=== PATIENT | female | born 2000 | race Caucasian/White ===

== ENCOUNTER 2020-12-01 08:56 | Emergency (ER) | payer MEDICAID, SELFPAY ==
[2020-12-01 09:31] LABS: Bilirubin Small (Negative); Blood, Urine Large (Negative); Glucose, Urine (Dipstick) Negative (Negative); Ketone, Urine Negative (Negative); Leukocyte Small (Negative); Nitrite Negative (Negative); Protein, Urine (Dipstick) Trace mg/dL (Neg-Trace); Specific Gravity, Urine 1.025 (1.005-1.030)
[2020-12-01 09:38] LABS: Clarity Hazy (Clear)
[2020-12-01 09:39] LABS: Bacteria/HPF Rare-Few HPF (None Seen); Pregnancy Test - Urine (BHCG) Negative (Negative); Pregu Control Background? CLEAR/WHITE (CLR/WHITE); Pregu Control Bar Appear? YES (CONTROL BAR); RBC/HPF 0-3 HPF (0-3); Specific Gravity 1.025 (1.002-1.036); Squamous Epithelial 0-3 HPF (0-3)
== END 2020-12-01 09:58 | disposition home or self-care (01) ==
LOC: BURERS 08:56
DX: R30.0 Dysuria (principal); R10.9 Unspecified abdominal pain; Z79.899 Other long term (current) drug therapy; F17.200 Nicotine dependence, unspecified, uncomplicated
CPT/HCPCS: 81003; 81015; 81025; 87077; 87086; 87186; 99283

== ENCOUNTER 2021-08-27 11:32 | Emergency (ER) | payer SELFPAY ==
[2021-08-27 23:35] LABS: SARS-CoV-2 PCR by NAA Not Detected (NotDetected)
== END 2021-08-27 12:14 | disposition home or self-care (01) ==
LOC: BURERS 11:32
DX: B34.9 Viral infection, unspecified (principal); R00.2 Palpitations; F17.200 Nicotine dependence, unspecified, uncomplicated; Z20.822 Contact with and (suspected) exposure to COVID-19
CPT/HCPCS: 87804; 93005; U0003; U0005

== ENCOUNTER 2022-03-08 00:34 | Emergency (ER) | payer SELFPAY ==
[2022-03-08] MEDS ORDERED: Ibuprofen 800 MG TAB ONE (00:57)
[2022-03-08 01:18] LABS: Pregnancy Test - Urine (BHCG) Negative (Negative); Pregu Control Background? CLEAR/WHITE (CLR/WHITE); Pregu Control Bar Appear? YES (CONTROL BAR); Specific Gravity 1.031 (1.002-1.036)
== END 2022-03-08 01:37 | disposition home or self-care (01) ==
LOC: BURERS 00:34
DX: S93.402A Sprain of unspecified ligament of left ankle, initial encounter (principal); F17.200 Nicotine dependence, unspecified, uncomplicated; W21.9XXA Striking against or struck by unspecified sports equipment, initial encounter
CPT/HCPCS: 81025

== ENCOUNTER 2022-03-16 15:33 | Emergency (ER) | payer SELFPAY | END 2022-03-16 16:15 | disposition home or self-care (01) | LOC: BURERS 15:33 | DX: H65.91 Unspecified nonsuppurative otitis media, right ear (principal); F17.290 Nicotine dependence, other tobacco product, uncomplicated | CPT/HCPCS: 99282 ==

== ENCOUNTER 2023-03-09 04:30 | Emergency (ER) | payer OTHER ==
[2023-03-09] MEDS ORDERED: Acetaminophen 500 MG TAB ONE (04:54)
== END 2023-03-09 05:30 | disposition home or self-care (01) ==
LOC: BURERS 04:30
DX: O9A.213 Injury, poisoning and certain other consequences of external causes complicating pregnancy, third trimester (principal); Z3A.38 38 weeks gestation of pregnancy

== ENCOUNTER 2023-05-31 00:53 | Emergency (ER) | payer OTHER | END 2023-05-31 01:37 | disposition home or self-care (01) | LOC: BURERS 00:53 | DX: B34.9 Viral infection, unspecified (principal); F17.290 Nicotine dependence, other tobacco product, uncomplicated | CPT/HCPCS: 87081; 87430; 87804 ==

== ENCOUNTER 2023-05-31 14:48 | Emergency (ER) | payer OTHER ==
[2023-05-31] MEDS ORDERED: Ipratropium/Albuterol 3 ML NEB ONE (15:11)
== END 2023-05-31 16:25 | disposition home or self-care (01) ==
LOC: BURERS 14:48
DX: J06.9 Acute upper respiratory infection, unspecified (principal); R06.2 Wheezing; F17.290 Nicotine dependence, other tobacco product, uncomplicated
CPT/HCPCS: 71045; 87081; 87430; 87804; 99283; J7620

== ENCOUNTER 2024-01-21 18:19 | Emergency (ER) | payer OTHER, SELFPAY | END 2024-01-21 18:56 | disposition home or self-care (01) | LOC: BURERS 18:19 | DX: R05.9 Cough, unspecified (principal); F17.290 Nicotine dependence, other tobacco product, uncomplicated | CPT/HCPCS: 99283 ==

== ENCOUNTER 2024-09-13 12:07 | Emergency (ER) | payer SELFPAY ==
[~2024-09-13 12:07] MED LIST: Iopamidol 370 76% 100 ML VIAL ONE
[2024-09-13 12:43] LABS: #Eosinophils 0.2 thou/uL (0.0-0.7); #Lymphocytes 1.2 thou/uL (1.20-3.40); #Monocytes 0.6 thou/uL (0.11-0.59); #Neutrophils 2.5 thou/uL (1.40-6.50); %Basophils 0.6 % (0.0-1.0); %Eosinophils 4.2 % (0.0-10.0); %Lymphocytes 26.1 % (21.0-51.0); %Monocytes 13.5 % (0.0-10.0); %Neutrophils 55.5 % (42.0-75.0); Mean Corpuscular HGB CONC 32.6 g/dL (32.0-36.0); Mean Corpuscular Hemoglobin 29.1 pg (27.0-31.0); Mean Corpuscular Volume 89.4 fl (78.0-98.0); Mean Platelet Volume 7.7 fL (7.4-10.4); Platelet Count 175 10x3/uL (130-400); RBC Distribution Width 10.7 % (11.5-14.5); Red Blood Cell (RBC) Count 5.14 mill/uL (4.20-5.40); White Blood Cell (WBC) Count 4.4 10x3/uL (4.8-10.8)
[2024-09-13 13:00] LABS: ALT (SGPT) 26 U/L (8-55); AST (SGOT) 20 U/L (5-34); Albumin 3.9 g/dL (3.5-5.0); Alkaline Phosphatase 74 U/L (40-110); Anion Gap 12 mmol/L (10-20); BUN (Urea Nitrogen) 8 mg/dL (7.0-18.7); Bilirubin, Total 0.5 mg/dL (0.2-1.2); Calc. Creatinine Clearance 0 mL/min (70-130); Calcium 9.6 mg/dL (7.8-10.44); Carbon Dioxide 23 mmol/L (22-29); Chloride 110 mmol/L (98-107); Estimated GFR 99; Globulin 3.6 g/dL (2.4-3.5); Glucose 89 mg/dL (70-105); Lipase 41 U/L (8-78); Potassium 3.8 mmol/L (3.5-5.1); Protein, Total 7.5 g/dL (6.0-8.3); Sodium 141 mmol/L (136-145)
[2024-09-13 13:08] LABS: Bilirubin Negative (Negative); Blood, Urine Trace (Negative); Clarity Cloudy (Clear); Glucose, Urine (Dipstick) Negative (Negative); Ketone, Urine Trace mg/dL (Negative); Leukocyte Trace (Negative); Nitrite Negative (Negative); Protein, Urine (Dipstick) Trace mg/dL (Neg-Trace)
[2024-09-13 13:09] LABS: Pregnancy Test - Urine (BHCG) Negative (Negative)
[2024-09-13 13:10] LABS: Pregu Control Background? CLEAR/WHITE (CLR/WHITE); Pregu Control Bar Appear? YES (CONTROL BAR); Specific Gravity 1.025 (1.002-1.036); Specific Gravity, Urine 1.025 (1.002-1.036)
[2024-09-13 13:16] LABS: Bacteria/HPF 2+ HPF (None Seen); CAUTI Indications for Culture Dysuria,urgency,freq; Mucous/LPF 3+ LPF (<2+); RBC/HPF 0-3 HPF (0-3)
[2024-09-13 13:17] LABS: Urine Culture Reflex Yes Yes
== END 2024-09-13 14:05 | disposition home or self-care (01) ==
LOC: BURERS 12:07
DX: N39.0 Urinary tract infection, site not specified (principal); K50.00 Crohn's disease of small intestine without complications; F17.290 Nicotine dependence, other tobacco product, uncomplicated
CPT/HCPCS: 36415; 74177; 80053; 81001; 81025; 83690; 85025; 87086; Q9967

== ENCOUNTER 2024-10-30 09:08 | Emergency (ER) | payer SELFPAY ==
[2024-10-30] MEDS ORDERED: predniSONE 20 MG TAB ONE (09:59)
== END 2024-10-30 10:06 | disposition home or self-care (01) ==
LOC: BURERS 09:08
DX: J22 Unspecified acute lower respiratory infection (principal); F17.290 Nicotine dependence, other tobacco product, uncomplicated
CPT/HCPCS: 71045; J7512

== ENCOUNTER 2025-01-16 09:26 | Emergency (ER) | payer OTHER, SELFPAY ==
[2025-01-16] MEDS ORDERED: Oseltamivir 75 MG CAP ONE (09:57)
[2025-01-16] MEDS ORDERED: Acetaminophen 325 MG TAB ONE (09:57)
== END 2025-01-16 10:06 | disposition home or self-care (01) ==
LOC: BURERS 09:26
DX: J11.1 Influenza due to unidentified influenza virus with other respiratory manifestations (principal); F17.290 Nicotine dependence, other tobacco product, uncomplicated
CPT/HCPCS: 99283

== ENCOUNTER 2025-05-25 17:36 | Emergency (ER) | payer OTHER ==
[2025-05-25 19:06] LABS: #Basophils 0.1 thou/uL (0.0-0.2); #Eosinophils 0.1 thou/uL (0.0-0.7); #Lymphocytes 1.5 thou/uL (1.20-3.40); #Monocytes 0.4 thou/uL (0.11-0.59); #Neutrophils 5.2 thou/uL (1.40-6.50); %Basophils 0.7 % (0.0-1.0); %Eosinophils 1.1 % (0.0-10.0); %Lymphocytes 20.8 % (21.0-51.0); %Monocytes 5.1 % (0.0-10.0); %Neutrophils 72.3 % (42.0-75.0); Hematocrit 43.7 % (36.0-47.0); Hemoglobin 14.2 g/dL (12.0-16.0); Mean Corpuscular Hemoglobin 29.1 pg (27.0-31.0); Mean Corpuscular Volume 89.6 fl (78.0-98.0); Platelet Count 262 10x3/uL (130-400); Red Blood Cell (RBC) Count 4.88 mill/uL (4.20-5.40); White Blood Cell (WBC) Count 7.2 10x3/uL (4.8-10.8)
[2025-05-25 19:13] LABS: INR-International Normal Ratio 1.0; Prothrombin Time 13.2 sec (12.0-14.7)
[2025-05-25 19:15] LABS: BHCG - Serum Negative (NEGATIVE); Pregs Control Background? CLEAR/WHITE (CLR/WHITE); Pregs Control Bar Appear? YES (CONTROL BAR)
[2025-05-25 19:34] LABS: Glucose, Urine (Dipstick) Negative (Negative); Leukocyte Negative (Negative); Protein, Urine (Dipstick) Trace mg/dL (Neg-Trace); Specific Gravity, Urine 1.020 (1.005-1.030)
[2025-05-25 19:42] LABS: CAUTI Indications for Culture Dysuria,urgency,freq; RBC/HPF 21-50 HPF (0-3); WBC/HPF 0-3 HPF (0-3)
[2025-05-25 19:43] LABS: Bacteria/HPF Rare-Few HPF (None Seen); Urine Culture Reflex No No
== END 2025-05-25 20:23 | disposition home or self-care (01) ==
LOC: BURERS 17:36
DX: N92.0 Excessive and frequent menstruation with regular cycle (principal); F17.290 Nicotine dependence, other tobacco product, uncomplicated
CPT/HCPCS: 36415; 81001; 84703; 85025; 85610; 99284